=== PATIENT | male | born 1970 | race Caucasian/White ===

== ENCOUNTER 2017-11-10 09:52 | Emergency (ER) | payer OTHER, MEDICAID, SELFPAY ==
[2017-11-10 10:04] VITALS: BP 168/111; PULSE 63; RESP 16; TEMP 36.8; O2SAT 97; BMI 25.7
--- NOTE | 2017-11-10 10:19 | ED_ITS ---
HPI - Male Genitourinary General Chief complaint: Urogenital-Male Stated complaint: SOMETHING WRONG WITH MY KIDNEY Time Seen by Provider: 11/10/17 10:12 Source: patient Mode of arrival: ambulatory Limitations: no limitations History of Present Illness HPI Narrative: Patient is a 46-year-old male who presents with right and left- sided flank pain. He has a history of kidney stones. This pain has been off and on for the last 1 week. Typically he passes a stone within the cement time. Pain has been quite intense at times it does radiate down to his testicle it is more on the right than the left, denies any specific testicular pain. He is not entirely sure what is going on it does not quite feel like kidney stone pain. He has not had fever or chills. He does symptoms have difficulty urinating which happens with kidney stones. he denies any penile discharge he is a monogamous sexual relationship, no history of STDs MD Complaint: other (Flank pain) Onset (ago): week(s) (x1) Related Data Home Medications Medication Instructions Recorded Confirmed [id number]-[id number] 1 tab PO Q4-6H PRN 11/10/17 11/10/17 [Excedrin Migraine] naproxen sodium [Aleve] 220 mg PO Q6-8H PRN 11/10/17 11/10/17 Previous Rx's Medication Instructions Recorded ciprofloxacin HCl 500 mg PO BID #14 tab 11/10/17 Allergies Allergy/AdvReac Type Severity Reaction Status Date / Time hydrocodone [HYDROCODONE] Allergy Mild THINKS HE Verified 11/10/17 10:04 ITCHES oxycodone [OXYCODONE] Allergy Mild ITCHING Verified 11/10/17 10:04 Review of Systems Review of Systems All systems reviewed & are unremarkable except as noted in HPI and below Constitutional Denies chills, Denies fever(s), Denies lethargy and Denies weakness Cardiovascular Denies chest pain, Denies irregular heart rhythm, Denies lightheadedness, Denies palpitations and Denies orthopnea Gastrointestinal Gastrointestinal: Denies abdominal pain, Denies diarrhea, Reports nausea and Denies vomiting Genitourinary Reports system reviewed and no additional complaints, except as docu and Reports as per HPI Musculoskeletal Denies back pain, Denies muscle weakness, Denies numbness and Denies tingling Integumentary/Breasts Denies pruritus, Denies erythema, Denies rash and Denies wounds Neurologic Denies numbness, Denies tingling and Denies weakness Endocrine Denies palpitations [facility] Medical History Kidney stones (Acute) Social History Smoking Status: Current every day smoker Exam Initial Vital Signs Initial Vital Signs: Vital Signs Temperature 98.2 F 11/10/17 10:04 Pulse Rate 63 11/10/17 10:04 Respiratory Rate 16 11/10/17 10:04 Blood Pressure 168/111 H 11/10/17 10:04 Pulse Oximetry 97 11/10/17 10:04 Const General: cooperative and well developed Nutritional Appearance: well nourished Orientation: alert, awake, oriented x3 and not confused Chest Chest: normal inspection of the chest Resp Effort & Inspection: normal respiratory effort, able to speak in complete sentences, no respiratory distress and no use of accessory muscles Auscultation: clear to auscultation bilaterally, no rales, no rhonchi and no wheezes Cardio Rate: regular rate Rhythm: regular rhythm Heart Sounds: no click, no gallops, no murmurs and no rubs Pulses: normal peripheral pulses General: CVA tenderness (Right-sided) Skin General: no rashes or lesions noted, No jaundice and No petechiae Neuro General: alert, oriented x3, gait normal and no focal motor deficits Speech: speech normal Course Orders Ordered: ED Orders 11/10/17 09:55 Urine Microscopic Stat 11/10/17 10:30 CT kidney ureter bladder (KUB) Stat 11/10/17 11:15 Basic Metabolic Panel Stat Complete Blood Count AUTO DIFF Stat Vital Signs - 8 hr 11/10/17 10:04 11/10/17 11:52 Temperature 98.2 F Pulse Rate 63 69 Respiratory Rate 16 15 Blood Pressure 168/111 H Blood Pressure [Right Arm] 156/114 H Pulse Oximetry 97 96 MDM - Male Genitourinary Lab Data Attestation: I reviewed the patient's lab results. Result diagrams: 11/10/17 11:15 11/10/17 11:15 Lab Results 11/10/17 11/10/17 11/10/17 Range/Units 09:55 11:15 11:15 WBC 9.5 (4.5-11.0) X10^3/uL RBC 5.33 (4.5-5.9) X10^6/uL Hgb 16.7 (13.5-17.5) g/dL Hct 47.8 (41-53) % MCV 89.7 (80-100) fL MCH 31.3 (26-34) PG MCHC 34.9 (30-36) % RDW 14.2 (11.6-14.8) % Plt Count 124 L (150-400) X10^3/uL Neut % (Auto) 71.2 (50-75) % Lymph % (Auto) 18.3 L (25-40) % Wolfe % (Auto) 7.3 (3-14) % Eos % (Auto) 2.4 (2-4) % Baso % (Auto) 0.8 (0-2) % Neut # (Auto) 6700 H (3532-2515) /uL Sodium 145 (137-145) mmol/L Potassium 4.9 (3.4-5.1) mmol/L Chloride 107 (98-107) mmol/L Carbon Dioxide 26 (22-32) mmol/L BUN 25 H (9-20) mg/dL Creatinine 1.00 (0.66-1.25) mg/dL Estimated GFR > 60.0 (>60) mL/min BUN/Creatinine Ratio 25.0 H (6-22) Glucose 111 H (70-100) mg/dL Calcium 9.8 (8.4-10.2) mg/dL Urine RBC 1-5/hpf (0-5/HPF) Urine WBC 1-5/hpf (0-5/HPF) Urine Bacteria Few (2-10) H (None) Urine Mucus 1+ H (Negative) Ur Culture Indicated? Cult not indicated Micro UA Comment Not Reportable Imaging Data CT scan - abdomen: Attestation: I personally reviewed and interpreted this imaging study as follows: Radiologist's impression: PROCEDURE: CT KIDNEY URETER BLADDER (KUB) INDICATIONS: right flank pain x 1 week hx of stones TECHNIQUE: Noncontrast 5 mm thick sections acquired from the diaphragms to the symphysis. 5 mm thick coronal and sagittal reformats were then performed. For radiation dose reduction, the following was used: automated exposure control, adjustment of mA and/or kV according to patient size. COMPARISON: [facility], , CT KUB, 02/06/2005, 0:32. [facility], CT , KIDNEY/ URETER/BLADDER, 02/19/2014, 7:53. [facility], CT, KIDNEY/ URETER/BLADDER, , 1:52. FINDINGS: Image quality: Excellent. Lung bases: Lung bases are clear. Heart size is normal. Urinary system: Both kidneys are normal in size. No kidney stones. No hydronephrosis or perinephric fat stranding. A cortical cyst in the lateral upper pole of the left kidney is reidentified and measures 13 x 14 x 13 mm in size, essentially unchanged. It shows internal attenuation of the seventh-eighth units. In the lower pole of the right kidney, previously identified 11 mm cyst has enlarged, now measuring 22 x 25 x 17 mm with internal attenuation of 3. Both ureters appear non-dilated throughout their expected courses. The small calcification in the right hemipelvis, distal right ureter on prior exam is no longer seen. Bladder wall thickness is normal; no calcified bladder stones. Other solid organs: Liver is normal in size. Gallbladder appears normal. Pancreas is normal in contours. Spleen is normal in size. No adrenal nodules. Peritoneum and bowel: Unenhanced bowel loops demonstrate normal wall thickness and caliber. Normal appendix. Mild sigmoid diverticulosis without diverticulitis. No free fluid or air. Nodes and vessels: No retroperitoneal or mesenteric adenopathy by size criteria. Aorta and inferior vena cava are normal in caliber. Abdominal wall: No ventral hernias. Pelvis: No free pelvic fluid. No inguinal hernias or adenopathy. Bones: No suspicious bony lesions. No vertebral body compression fractures. IMPRESSION: 1. No nephrolithiasis or hydronephrosis. 2. Bilateral Bosniak l renal cysts, right lower pole cyst having increased in size from 1 cm to 2.5 cm since prior exams. Dictated by: Sher Barclay M.D. on 11/10/2017 at 10:40 MDM Narrative Medical decision making narrative: No kidney stones, patient had bacteria in urine. Will treat for UTI. Discharge Plan Departure Patient Disposition: Home, Self-Care Clinical Impression: Urinary tract infection Discharge Date/Time: 11/10/17 12:08 Interventions: ED Discharge Assessment Last Done: 11/10/17 12:07 Instructions: DI for Urinary Tract Infection (UTI) Activity Restrictions/Additional Instructions: *You have been diagnosed with UTI *What to do: Increase fluid intake Motrin Tylenol as needed for pain *Continue to take medications as directed Cipro 500 mg twice a day *Follow up with your primary care provider in 2-3 days *Return to ER if you should have increasing pain, persistent fever or any new, worsening or concerning symptoms Prescriptions: New ciprofloxacin HCl 500 mg tablet 500 mg PO BID Qty: 14 RF: 0 No Action naproxen sodium [Aleve] 220 mg Tablet 220 mg PO Q6-8H PRN (Reason: Pain, Moderate) RF: 0 [id number] [Excedrin Migraine] 250-250-65 mg Tablet 1 tab PO Q4-6H PRN (Reason: Headache) RF: 0 Referrals: [facility] [Outside] [facility] [Outside]
[2017-11-10 10:26] LABS: Bacteria Urine Few (2-10); Mucus Urine 1+ (Negative); RBC Urine 1-5/HPF (0-5/HPF); WBC Urine 1-5/HPF (0-5/HPF)
[2017-11-10 10:27] LABS: Culture Indicated Urine Cult Not Indicated
--- NOTE | 2017-11-10 10:30 | DI.CT.S_ITS ---
PROCEDURE: CT KIDNEY URETER BLADDER (KUB) INDICATIONS: right flank pain x 1 week hx of stones TECHNIQUE: Noncontrast 5 mm thick sections acquired from the diaphragms to the symphysis. 5 mm thick coronal and sagittal reformats were then performed. For radiation dose reduction, the following was used: automated exposure control, adjustment of mA and/or kV according to patient size. COMPARISON: [facility], RG, CT KUB, 02/06/2005, 0:32. [facility], CT, KIDNEY/ URETER/BLADDER, 02/19/2014, 7:53. [facility], CT, KIDNEY/ URETER/BLADDER, 08/15/2014, 1:52. FINDINGS: Image quality: Excellent. Lung bases: Lung bases are clear. Heart size is normal. Urinary system: Both kidneys are normal in size. No kidney stones. No hydronephrosis or perinephric fat stranding. A cortical cyst in the lateral upper pole of the left kidney is reidentified and measures 13 x 14 x 13 mm in size, essentially unchanged. It shows internal attenuation of the seventh-eighth units. In the lower pole of the right kidney, previously identified 11 mm cyst has enlarged, now measuring 22 x 25 x 17 mm with internal attenuation of 3. Both ureters appear non-dilated throughout their expected courses. The small calcification in the right hemipelvis, distal right ureter on prior exam is no longer seen. Bladder wall thickness is normal; no calcified bladder stones. Other solid organs: Liver is normal in size. Gallbladder appears normal. Pancreas is normal in contours. Spleen is normal in size. No adrenal nodules. Peritoneum and bowel: Unenhanced bowel loops demonstrate normal wall thickness and caliber. Normal appendix. Mild sigmoid diverticulosis without diverticulitis. No free fluid or air. Nodes and vessels: No retroperitoneal or mesenteric adenopathy by size criteria. Aorta and inferior vena cava are normal in caliber. Abdominal wall: No ventral hernias. Pelvis: No free pelvic fluid. No inguinal hernias or adenopathy. Bones: No suspicious bony lesions. No vertebral body compression fractures. IMPRESSION: 1. No nephrolithiasis or hydronephrosis. 2. Bilateral Bosniak l renal cysts, right lower pole cyst having increased in size from 1 cm to 2.5 cm since prior exams. Dictated by: Sher Barclay M.D. on 11/10/2017 at 10:40 Approved by: Sher Barclay M.D. on 11/10/2017 at 10:55
[2017-11-10 11:22] LABS: Add Manual Diff / Slide Review NO; Basophils Percent Auto 0.8 % (0-2); Eosinophils Percent Auto 2.4 % (2-4); Hematocrit 47.8 % (41-53); Hemoglobin 16.7 g/dL (13.5-17.5); Lymphocytes Percent Auto 18.3 % (25-40); Mean Corpuscular HGB Conc 34.9 % (30-36); Mean Corpuscular Hemoglobin 31.3 PG (26-34); Mean Corpuscular Volume 89.7 fL (80-100); Monocytes Percent Auto 7.3 % (3-14); Neutrophils Absolute Auto 6700 /uL (3000-5900); Neutrophils Percent Auto 71.2 % (50-75); Platelet Count 124 X10^3/uL (150-400); Red Blood Cell Count 5.33 X10^6/uL (4.5-5.9); Red Cell Distribution Width 14.2 % (11.6-14.8); White Blood Cell Count 9.5 X10^3/uL (4.5-11.0)
[2017-11-10 11:42] LABS: Blood Urea Nitrogen 25 mg/dL (9-20); Calcium 9.8 mg/dL (8.4-10.2); Carbon Dioxide 26 mmol/L (22-32); Chloride 107 mmol/L (98-107); Estimated Glomerular Filt Rate > 60.0 mL/min (>60); Glucose 111 mg/dL (70-100); HEMOLYSIS < 15 (0-50); Potassium 4.9 mmol/L (3.4-5.1); Sodium 145 mmol/L (137-145)
[2017-11-10 11:52] VITALS: BP 156/114; PULSE 69; RESP 15; O2SAT 96
== END 2017-11-10 12:08 | disposition home or self-care (01) ==
PROVIDERS: Emergency Provider Emergency Medicine
DX: N39.0 Urinary tract infection, site not specified (principal)
CPT/HCPCS: 36415; 74176; 80048; 81003; 81015; 85025; 99282; 99284

== ENCOUNTER 2018-11-30 15:51 | Emergency (ER) | payer OTHER, SELFPAY ==
--- NOTE | 2018-11-30 15:58 | DI.RAD.S_ITS ---
PROCEDURE: XR HAND RT MIN 3V INDICATIONS: R hand pain, swelling over 5th MCP TECHNIQUE: 3 views of the hand(s) acquired. COMPARISON: None. FINDINGS: Bones: There is a comminuted fracture of the left metacarpal head and neck without displacement. There is probable old fracture of the fifth metacarpal base. Carpal bones are normally aligned. No suspicious bony lesions. Soft tissues: Small radiodense soft tissue foreign bodies are noted. There is a soft tissue swelling over the distal fifth metacarpal. IMPRESSION: 1. Nondisplaced acute fifth metacarpal head and neck fracture. 2. Probable nondisplaced old fifth metacarpal base fracture. 3. Soft tissue swelling and small radiodense foreign bodies. Dictated by: Mery Nino M.D. on 11/30/2018 at 16:14 Approved by: Mery Nino M.D. on 11/30/2018 at 16:18
--- NOTE | 2018-11-30 16:02 | ED_ITS ---
HPI - Extremity Injury (Upper) General Chief Complaint: Extremity Injury, Upper Stated Complaint: RT HAND INJURY Time Seen by Provider: 11/30/18 15:53 Source: patient Mode of arrival: ambulatory Limitations: no limitations History of Present Illness HPI narrative: 48-year-old male daily smoker presents with a chief complaint of an injury to his right hand after punching and abdomen object in anger. His tetanus is current. He has pain and decreased range of motion as well as a laceration over his 5th finger. He denies other injury and is otherwise well and free of complaint MD complaint: injury to: right Onset (ago): minute(s) Other Extremity Injury: Right: hand Handedness: right Place: home Severity: moderate Relieving factors: cold therapy and immobilization Exacerbating factors: movement of extremity Context: direct blow Associated symptoms: denies other symptoms Treatments prior to arrival: cold therapy and bandage Related Data Previous Rx's Medication Instructions Recorded hydrocodone-acetaminophen 1 tab PO Q4-6H PRN #20 tab 11/30/18 Allergies Allergy/AdvReac Type Severity Reaction Status Date / Time hydrocodone [HYDROCODONE] Allergy Mild THINKS HE Verified 11/30/18 16:04 ITCHES oxycodone [OXYCODONE] Allergy Mild ITCHING Verified 11/30/18 16:04 Review of Systems Constitutional Denies chills, Denies fever(s), Denies lethargy and Denies weakness Eyes Denies change in vision, Denies eye discharge, Denies irritation and Denies loss of vision ENT Ears, Nose, Mouth, and Throat: Denies change in voice, Denies neck pain and Denies sore throat Cardiovascular Denies chest pain, Denies irregular heart rhythm, Denies lightheadedness, Denies palpitations, Denies dyspnea, Denies dyspnea on exertion and Denies orthopnea Respiratory Denies cough, Denies dyspnea, Denies dyspnea on exertion and Denies wheezing Gastrointestinal Gastrointestinal: Denies abdominal pain, Denies change in bowel habits, Denies diarrhea, Denies nausea and Denies vomiting Genitourinary Denies hematuria, Denies flank pain, Denies urinary incontinence and Denies urinary urgency Musculoskeletal Reports joint swelling, Reports limited range of motion and Denies neck pain Integumentary/Breasts Denies pruritus, Denies erythema, Denies rash and Reports wounds Neurologic Denies confusion, Denies loss of vision and Denies weakness Psychiatric Denies anxiety, Denies confusion, Denies depression, Denies homicidal ideation and Denies suicidal ideation Endocrine Denies palpitations Hematologic/Lymphatic Denies easy bruising Allergic/Immunologic Denies wheezing [facility] [place] Medical History Kidney stones (Acute) Social History Smoking Status: Current every day smoker Social History Smoking Status: Current every day smoker Exam Narrative Exam Narrative: GEN: 48-year-old male, A&O x3, GCS 15, pleasant, but obviously in pain EYES: Pupils are equal, round, and reactive to light and accommodation. Extraoccular muscles are intact bilaterally. There is no subconjunctival hemorrhage or exudate. CHEST: Lungs are clear to auscultation bilaterally and free of wheezes, rales, or rhonchi. Heart rate is regular rhythm, there are no murmurs, clicks, rubs, or gallops. There is no chest wall tenderness. ABD: Abdomen is soft and nontender. There is no guarding or rebound. Bowel sounds are normal in all 4 quadrants. There is no mass or organomegaly. EXT: Decreased range of motion secondary to pain of the right hand, particularly at the 5th MCP. There is swelling and possible deformity suggesting fracture. Additionally there is a 1 cm laceration on the dorsum of the 5th finger with dried blood but no active bleeding. Cap refills less than 2 seconds and sensation is intact SKIN: Warm, pink, and dry. No erythema or rash Initial Vital Signs Initial Vital Signs: Vital Signs Temperature 97.7 F 11/30/18 16:04 Pulse Rate 81 11/30/18 16:04 Respiratory Rate 16 11/30/18 16:04 Blood Pressure 157/119 H 11/30/18 16:04 Pulse Oximetry 96 11/30/18 16:04 Procedures Laceration Repair Laceration 1: Site: hand Side (If applicable): right Size (cm): 1 Description: linear Depth: simple, single layer Local Anesthetic: lidocaine 1% and with bicarb Amount of anesthesia used (mL): 2 Pre-repair: wound explored and deep structures intact Skin layer closed with: nylon Size (cm): 5-0 Number of sutures: 2 Technique: simple, interrupted Orthopedic Splinting/Casting Injury #1: Side: right Upper Extremity Injury Location: hand Upper Extremity Immobilizer: ulnar gutter Post splinting neuro exam: intact Post splinting vascular exam: intact Placed by: Nursing Course Orders Ordered: ED Orders 11/30/18 15:58 XR hand RT min 3V Stat Vital Signs - 8 hr 11/30/18 16:04 11/30/18 16:50 Temperature 97.7 F Pulse Rate 81 66 Respiratory Rate 16 18 Blood Pressure 157/119 H Blood Pressure [Left Arm] 147/109 H Pulse Oximetry 96 97 MDM - Extremity Injury (Upper) Imaging Data hand xray: Radiologist's impression: [address] [address] XRay Report Signed Patient: Laila Plummer#: [id number] : 1970Acct:[id number] Age/Sex: 48 / MDate of Service: 11/30/18 Loc: ED Accession Number: [id number] Procedure: XR hand RT min 3V Ordering Provider: Dhiraj Roblero D.O. PROCEDURE: XR HAND RT MIN 3V INDICATIONS: R hand pain, swelling over 5th MCP TECHNIQUE: 3 views of the hand(s) acquired. COMPARISON: None. FINDINGS: Bones: There is a comminuted fracture of the left metacarpal head and neck without displacement. There is probable old fracture of the fifth metacarpal base. Carpal bones are normally aligned. No suspicious bony lesions. Soft tissues: Small radiodense soft tissue foreign bodies are noted. There is a soft tissue swelling over the distal fifth metacarpal. IMPRESSION: 1. Nondisplaced acute fifth metacarpal head and neck fracture. 2. Probable nondisplaced old fifth metacarpal base fracture. 3. Soft tissue swelling and small radiodense foreign bodies. Dictated by: Mery Nino M.D. on 11/30/2018 at 16:14 Approved by: Mery Nino M.D. on 11/30/2018 at 16:18 Discharge Plan Departure Patient Disposition: Home Clinical Impression: Fracture of fifth metacarpal bone of right hand Qualifiers: Encounter type: initial encounter Fracture type: closed Metacarpal location: shaft Fracture alignment: displaced Qualified Code(s): S62.326A - Displaced fracture of shaft of fifth metacarpal bone, right hand, initial encounter for closed fracture Laceration of finger of right hand Qualifiers: Encounter type: initial encounter Finger: little finger Damage to nail status: without damage Foreign body presence: without foreign body Qualified Code(s): S61.216A - Laceration without foreign body of right little finger without damage to nail, initial encounter Discharge Date/Time: 11/30/18 16:54 Interventions: ED Discharge Assessment Last Done: 11/30/18 16:53 Instructions: DI for a Hand Fracture Activity Restrictions/Additional Instructions: Please keep the wound clean and dry to the best of your ability. Please monitor for signs of infection such as redness to the skin or increasing pain. Have the sutures removed by your doctor in about 7 days. If you are unable to get into your doctor, we would be happy to remove the sutures in that same timeframe. *You have been diagnosed with [right hand boxer's fracture, possible 5th metacarpal base fracture with superficial laceration] *What to do: *Take medications as directed *Follow up with [facility] in 2-3 days, call for an appointment. Let them know you were seen in the Emergency Department and that we ask that you be seen in follow up *Return to ER if you should have any new, worsening or concerning symptoms, such as [worsening pain, numbness, tingling or other bothersome symptoms] Prescriptions: New hydrocodone-acetaminophen 5-325 mg tablet 1 tab PO Q4-6H PRN (Reason: pain) Qty: 20 RF: 0 Referrals: Richie Schroeder MD [Physician] -
[2018-11-30 16:04] VITALS: BP 157/119; PULSE 81; RESP 16; TEMP 36.5; O2SAT 96; BMI 26.9
[2018-11-30 16:50] VITALS: BP 147/109; PULSE 66; RESP 18; O2SAT 97
== END 2018-11-30 16:54 | disposition home or self-care (01) ==
PROVIDERS: Emergency Provider Emergency Medicine
DX: S62.326A Displaced fracture of shaft of fifth metacarpal bone, right hand, initial encounter for closed fracture (principal); S61.216A Laceration without foreign body of right little finger without damage to nail, initial encounter; W22.8XXA Striking against or struck by other objects, initial encounter
CPT/HCPCS: 12001; 29125; 73130; 99283

== ENCOUNTER 2018-12-13 14:48 | Emergency (ER) | payer OTHER, SELFPAY ==
[2018-12-13 14:52] VITALS: BP 160/111; PULSE 55; RESP 18; TEMP 36.8; O2SAT 97; BMI 26.9
--- NOTE | 2018-12-13 17:05 | PC.NURSE ---
Skin well approximated with no redness or swelling
[2018-12-13 17:06] VITALS: BP 154/88; PULSE 85; RESP 16; TEMP 36.3; O2SAT 98
--- NOTE | 2018-12-13 20:20 | ED_ITS ---
HPI - Wound/Laceration <MARK Villar - Last Filed: 12/13/18 20:20> General Chief Complaint: Wound/Laceration Stated Complaint: NEEDS STICHES TAKEN OUT Time Seen by Provider: 12/13/18 16:45 Source: patient Mode of arrival: ambulatory Limitations: no limitations History of Present Illness HPI narrative: The patient is a 48-year-old male current smoker who presents for chief complaint of needing his sutures out. He was seen for a fracture of his 5th metacarpal bone on his right hand on 11/30 and was placed with 2 sutures. He followed up with [facility], but they states at he was not contacted again for further follow-up. He states he does not want to call them as it is their adopted call him. He denies any fevers nausea vomiting diarrhea. Denies any drainage from the site. Related Data Previous Rx's Medication Instructions Recorded hydrocodone-acetaminophen 1 tab PO Q4-6H PRN #20 tab 11/30/18 Allergies Allergy/AdvReac Type Severity Reaction Status Date / Time No Known Drug Allergies Allergy Verified 12/13/18 15:27 Review of Systems <MARK Villar - Last Filed: 12/13/18 20:20> Review of Systems GENERAL: Denies chills, fatigue, malaise, fever, sweats. HEENT: Denies sinus pain, ear pain, sore throat, difficulty swallowing, dizziness. RESPIRATORY: Denies dyspnea, cough, wheezing, hemoptysis, sputum. CARDIOVASCULAR: Denies chest pain, palpitations, orthopnea, edema, GASTROINTESTINAL: Denies nausea, vomiting, abdominal pain, diarrhea, constipation, melena. : Denies dysuria, frequency, incontinence, hematuria, urinary retention. MUSCULOSKELETAL: denies weakness, joint pain, or bony pain SKIN: See HPI NEUROLOGIC: Denies weakness, headache, numbness, change in speech, confusion, seizures, incoordination. PSYCHIATRIC: No concerning psychosocial issues. 12 point review of systems is negative except for those stated above PFSH <MARK Villar - Last Filed: 12/13/18 20:20> Medical History Kidney stones (Acute) Social History Smoking Status: Current every day smoker Exam <MARK Villar - Last Filed: 12/13/18 20:20> Narrative Exam Narrative: GENERAL: This is a well-nourished, well-developed patient, in no acute distress. HEAD: Atraumatic. Normocephalic. No temporal or scalp tenderness. EYES: Pupils equal round and reactive. Extraocular motions intact. No scleral icterus. No injection or drainage. ENT: Nose without bleeding, purulent drainage or septal hematoma. Throat without erythema, tonsillar hypertrophy or exudate. Uvula midline. Airway patent. NECK: Trachea midline. No JVD or lymphadenopathy. Supple, nontender, no meningeal signs. CARDIOVASCULAR: Regular rate and rhythm RESPIRATORY: No cough. No increased respiratory effort. No accessory muscle use. EXTREMITIES: No clubbing, cyanosis, or edema. No joint tenderness, effusion, or edema noted. BACK: Nontender without deformity or crepitance. No flank tenderness. NEURO: AOx3. SKIN: 2 sutures over dorsum of the 5th finger. Wound is well approximated. No obvious drainage or erythema. Initial Vital Signs Initial Vital Signs: Vital Signs Temperature 98.2 F 12/13/18 14:52 Pulse Rate 55 L 12/13/18 14:52 Respiratory Rate 18 12/13/18 14:52 Blood Pressure 160/111 H 12/13/18 14:52 Pulse Oximetry 97 12/13/18 14:52 <Aminata Fleming MD - Last Filed: 12/13/18 20:21> Initial Vital Signs Initial Vital Signs: Vital Signs Temperature 98.2 F 12/13/18 14:52 Pulse Rate 55 L 12/13/18 14:52 Respiratory Rate 18 12/13/18 14:52 Blood Pressure 160/111 H 12/13/18 14:52 Pulse Oximetry 97 12/13/18 14:52 Course <MARK Villar - Last Filed: 12/13/18 20:20> Vital Signs - 8 hr 12/13/18 14:52 12/13/18 17:06 Temperature 98.2 F 97.4 F L Pulse Rate 55 L 85 Respiratory Rate 18 16 Blood Pressure 160/111 H 154/88 H Pulse Oximetry 97 98 <Aminata Fleming MD - Last Filed: 12/13/18 20:21> Vital Signs - 8 hr 12/13/18 14:52 12/13/18 17:06 Temperature 98.2 F 97.4 F L Pulse Rate 55 L 85 Respiratory Rate 18 16 Blood Pressure 160/111 H 154/88 H Pulse Oximetry 97 98 MDM - Wound/Laceration <MONSE VillarP- - Last Filed: 12/13/18 20:20> MDM Narrative Medical decision making narrative: The patient is a 48-year-old male who presents for suture removal. His incision looks good and his sutures removed by nursing staff. I discussed at length follow up with primary care provider as well as [facility]. Encouraged the patient to call [facility] and try to encourage responsibility with his own care. The patient was agitated regarding the wait to have sutures out, as well as his weight for discharge paperwork. He states he will not call [facility], so I offered to refer him to the health sustainability project coordinator. Discussed coming back to the ER for any acute concerns. Discharge Plan Departure Patient Disposition: Home Clinical Impression: Encounter for removal of sutures Discharge Date/Time: 12/13/18 17:27 Interventions: ED Discharge Assessment Last Done: 12/13/18 17:06 Instructions: DI for Suture Removal Activity Restrictions/Additional Instructions: Your laceration looks like it is healing well. Please continue to monitor for signs and symptoms of infection. Please follow up with primary care provider as well as the orthopedist as we discussed. I strongly encourage you to contact [facility] for further follow-up. I have given the contact information for [facility] technology resource teacher. They can help affiliate you with a new provider if needed. Prescriptions: No Action hydrocodone-acetaminophen 5-325 mg tablet 1 tab PO Q4-6H PRN (Reason: pain) Qty: 20 RF: 0 Referrals: [facility] [Outside]
== END 2018-12-13 17:27 | disposition home or self-care (01) ==
PROVIDERS: Emergency Provider Nurse Practitioner Family
DX: Z48.02 Encounter for removal of sutures (principal)
CPT/HCPCS: 99281; 99283

== ENCOUNTER → 2018-12-27 09:58 | Outpatient (CLI) | payer OTHER, SELFPAY ==
--- NOTE | 2018-12-27 | DI.CT.S_ITS ---
PROCEDURE: CT UE LT WO CON INDICATIONS: fracture of fifth metacarpal bone, right hand TECHNIQUE: Noncontrast 1 mm axial sections acquired through the carpal bones, with coronal and sagittal reformats. COMPARISON: [facility], CR, XR HAND RT MIN 3V, 11/30/2018, 15:58. FINDINGS: Image quality: Excellent. Bones: Left fifth metacarpal head and neck fracture, (4/53), with minimal displacement. The articular surface of the fifth MCP joint is smooth. No fracture of the base of the fifth metacarpal. There is a nutrient foramen in the proximal shaft as well as a small osteophyte. No additional fracture. Mild degenerative change in the wrist. Small sclerotic foci in the fifth proximal phalanx and distal ulna. Soft tissues: Mild soft tissue swelling associated with the fifth metacarpal fracture. IMPRESSION: Left fifth metacarpal head and neck fracture with minimal displacement. No additional fracture. Dictated by: Tony Issa M.D. on 12/27/2018 at 10:57 Approved by: Tony Issa M.D. on 12/27/2018 at 11:19
== END ==
PROVIDERS: Visit Provider Physician Assistant Surgical
DX: S62.337A Displaced fracture of neck of fifth metacarpal bone, left hand, initial encounter for closed fracture (principal)
CPT/HCPCS: 73200

== ENCOUNTER → 2019-09-22 17:06 | Outpatient (CLI) | payer OTHER, SELFPAY ==
[2019-09-24 05:01] LABS: COVID19 Sendout Not Detected (Not Detected)
== END ==
PROVIDERS: Visit Provider Registered Nurse
DX: R05 Cough (principal)
CPT/HCPCS: 87635

== ENCOUNTER 2021-12-25 22:50 | Emergency (ER) | payer OTHER, SELFPAY ==
[2021-12-25 23:02] VITALS: BP 164/106; PULSE 81; RESP 20; TEMP 36.4; O2SAT 98; BMI 28.8
[2021-12-26 00:03] LABS: Bacteria Urine None Seen; Calcium Oxalate Crystals Urine Occasional; Hyaline Casts Urine 0-1/LPF; Mucus Urine 2+ (Negative); RBC Urine >100/HPF (0-5/HPF); WBC Urine 0-1/HPF (0-5/HPF)
--- NOTE | 2021-12-26 00:03 | DI.CT.S_ITS ---
PROCEDURE: CT KIDNEY URETER BLADDER (KUB) INDICATIONS: flank pain, hx of kidney stones TECHNIQUE: Axial sections were acquired from the lung bases to the pubic symphysis. Coronal and sagittal reformats were performed. For radiation dose reduction, the following was used: automated exposure control, adjustment of mA and/or kV according to patient size. COMPARISON: [facility], CT, CT KIDNEY URETER BLADDER (KUB), 11/10/2017, 10:27. FINDINGS: Image quality: Excellent. Lung bases: There is minimal atelectasis and scarring. Heart: Heart is normal in size. URINARY: Right Kidney and Ureter: There is a small urinary stone measuring up to 0.4 cm at the ureteropelvic junction with associated mild right hydronephrosis and perinephric stranding. A cyst is redemonstrated in the inferior pole of the right kidney. Left Kidney and Ureter: No stones or hydronephrosis. There is an exophytic left renal cyst. No hydroureter. Bladder: Normal wall thickness. No stones. ABDOMEN: Liver: Noncontrast evaluation of the liver demonstrates no discrete mass. Gallbladder: Within normal limits without calcified gallstones. Biliary ducts: No biliary ductal dilatation. Pancreas: Unremarkable. Spleen: Normal in size. Adrenal Glands: No adrenal nodules. Stomach and Bowel: Stomach, small bowel loops, and colon are normal in caliber and wall thickness. The appendix is normal in appearance. There is colonic diverticulosis without acute diverticulitis. Peritoneum: No abnormal intraperitoneal fluid. No free air. Ventral Wall: No hernia. Abdominal Nodes: No retroperitoneal or mesenteric adenopathy by size criteria. Vessels: Aorta and inferior vena cava are normal in size. PELVIS: Pelvic Organs: Unremarkable. Pelvic Nodes: No enlarged lymph nodes. Miscellaneous: No inguinal hernias identified. Bones: Visualized osseous structures demonstrate no suspicious focal lesions. IMPRESSION: 1. Obstructing urinary stone at the right UPJ with mild hydronephrosis. Dictated by: Manish Gamez M.D. on 12/26/2021 at 1:23 Approved by: Manish Gamez M.D. on 12/26/2021 at 1:26
[2021-12-26] MEDS: KETOROLAC 30 MG/ML VIAL 15 MG IV (00:12)
[2021-12-26] MEDS: ONDANSETRON 4 MG/2 ML INJ IV (00:12)
[2021-12-26 00:20] LABS: Alanine Aminotransferase 24 IU/L (<50); Albumin 4.5 g/dL (3.5-5.0); Albumin Globulin Ratio 1.2 (1.0-2.8); Alkaline Phosphatase 81 U/L (38-126); Aspartate Aminotransferase 30 IU/L (17-59); BUN Creatinine Ratio 19.8 (6-22); Bilirubin Total 0.7 mg/dL (0.2-1.3); Blood Urea Nitrogen 21 mg/dL (9-20); Calcium 9.3 mg/dL (8.4-10.2); Carbon Dioxide 21 mmol/L (22-32); Chloride 107 mmol/L (98-107); Estimated Glomerular Filt Rate > 60 mL/min (>60); Globulin 3.7 g/dL (1.7-4.1); Glucose 109 mg/dL (70-100); HEMOLYSIS < 15 (0-50); Lipase 81 U/L (23-300); Potassium 3.7 mmol/L (3.4-5.1); Sodium 140 mmol/L (137-145); Total Protein 8.2 g/dL (6.3-8.2)
[2021-12-26 00:45] LABS: Add Manual Diff / Slide Review NO; Basophils Absolute Auto 100 /uL (0-100); Basophils Percent Auto 0.8 % (0-2); Eosinophils Absolute Auto 200 /uL (0-450); Eosinophils Percent Auto 2.3 % (2-4); Hematocrit 50.3 % (41-53); Lymphocytes Absolute Auto 1700 /uL (1100-4500); Lymphocytes Percent Auto 18.8 % (25-40); Mean Corpuscular HGB Conc 33.8 % (30-36); Mean Corpuscular Hemoglobin 28.8 PG (26-34); Mean Corpuscular Volume 85.4 fL (80-100); Monocytes Absolute Auto 800 /uL (0-900); Monocytes Percent Auto 9.3 % (3-14); Neutrophils Absolute Auto 6100 /uL (1500-7000); Neutrophils Percent Auto 68.8 % (50-75); Platelet Count 174 X10^3/uL (150-400); Red Blood Cell Count 5.89 X10^6/uL (4.5-5.9); Red Cell Distribution Width 14.6 % (11.6-14.8); White Blood Cell Count 8.9 X10^3/uL (4.5-11.0)
--- NOTE | 2021-12-26 00:58 | ED.MALEGU ---
HPI - Male Genitourinary General Chief complaint: Urogenital-Male Stated complaint: kidney pain Time Seen by Provider: 12/26/21 00:00 Source: patient Mode of arrival: Ambulatory History of Present Illness HPI Narrative: This is a 51-year-old male comes emergency department with complaint of kidney stone. Patient states sudden onset right flank pain sort of gradual and then increasing this morning sort of resolved and then came back on quite significantly this evening about 9:00 p.m. became intractable. Patient denies fevers or chills. He is had some nausea and vomiting. He has not any hematuria, dysuria, discharge or frequency. No GI symptoms no diarrhea constipation. Feels very similar to his prior kidney stones. He is had lithotripsy with stent placement in the past. States this was remotely. He has not had any other surgeries. No known drug allergies. He takes medication for GERD but no other daily medications. No smoking but he vapes, no alcohol, no illicit. He did see Urology locally but does not recall who. Related Data Previous Rx's Medication Instructions Recorded oxycodone 5 mg tablet 5 mg PO QID PRN pain #14 tabs 12/26/21 tamsulosin 0.4 mg capsule (Flomax) 0.4 mg PO DAILY #7 caps 12/26/21 Allergies Allergy/AdvReac Type Severity Reaction Status Date / Time No Known Drug Allergies Allergy Verified 09/22/19 16:44 Review of Systems Review of Systems ROS Unobtainable: All systems reviewed & are unremarkable except as noted in HPI and below Patient History Medical History (Updated 12/26/21 @ 01:37 by Dena Cannon DO) Kidney stones Social History Smoking Status: Former smoker Smoking Status: Former smoker alcohol intake frequency: a few times a week Substance Use Type: does not use Exam Narrative Exam Narrative: GENERAL: Alert and oriented x three, moderate distress HEENT: Head normocephalic, atraumatic, EOMI, pupils reactive, face symmetric, moist mucous membranes NECK: Supple, full range of motion CARDIOVASCULAR: Regular rate and rhythm without murmurs, rubs or gallops. RESPIRATORY: Breath sounds equal bilaterally, no wheezes rales or rhonchi. ABDOMEN: Soft, nontender. Normoactive bowel sounds all 4 quadrants. No guarding or rebound, rigidity, no mass : No CVA tenderness EXTREMITIES: Normal range of motion, no clubbing or edema. Neurovascularly intact NEUROLOGICAL: Cranial nerves II through XII grossly intact. Moving all extremities SKIN: Warm, dry, no petechiae, no rashes or lesions. Initial Vital Signs Initial Vital Signs: Vital Signs Temperature 97.6 F 12/25/21 23:02 Pulse Rate 81 12/25/21 23:02 Respiratory Rate 20 12/25/21 23:02 Blood Pressure 164/106 H 12/25/21 23:02 Pulse Oximetry 98 12/25/21 23:02 Oxygen Delivery Method 12/25/21 23:02 Course Orders Ordered: Discontinued Medications Hydromorphone HCl (Hydromorphone 0.5 Mg Inj) 0.5 mg IV NOW ONE Stop: 12/26/21 01:07 Last Admin: 12/26/21 01:10 Dose: 0.5 mg Documented By: NR Ketorolac Tromethamine (Ketorolac 30 Mg/Ml Vial) 15 mg IV NOW ONE Stop: 12/26/21 00:01 Last Admin: 12/26/21 00:12 Dose: 15 mg Documented By: NR Ondansetron HCl (Ondansetron 4 Mg/2 Ml Inj) 4 mg IV NOW ONE Stop: 12/26/21 00:01 Last Admin: 12/26/21 00:12 Dose: 4 mg Documented By: ALEXANDRA Oxycodone/Acetaminophen (Oxycodone/Apap 5/325 Prepack) 1 bottle MISC SEEINSTR ONE Stop: 12/26/21 02:08 Last Admin: 12/26/21 02:13 Dose: 1 bottle Documented By: NR Tamsulosin HCl (Tamsulosin 0.4 Mg Capsule) 0.4 mg PO NOW ONE Stop: 12/26/21 01:38 Last Admin: 12/26/21 02:02 Dose: 0.4 mg Documented By: HNG Reevaluation(s) Reevaluation #1: patient pain improved after narcotics. resting comfortably. Time: 01:54 Vital Signs Vital signs: Vital Signs - 8 hr 12/25/21 23:02 Temperature 97.6 F Pulse Rate 81 Respiratory Rate 20 Blood Pressure 164/106 H Pulse Oximetry 98 Oxygen Delivery Method Room Air MDM - Male Genitourinary Lab Data Result diagrams: 12/25/21 23:40 12/25/21 23:40 Labs: Lab Results 12/25/21 12/25/21 12/25/21 Range/Units 23:25 23:40 23:40 WBC 8.9 (4.5-11.0) X10^3/uL RBC 5.89 (4.5-5.9) X10^6/uL Hgb 17.0 (13.5-17.5) g/dL Hct 50.3 (41-53) % MCV 85.4 (80-100) fL MCH 28.8 (26-34) PG MCHC 33.8 (30-36) % RDW 14.6 (11.6-14.8) % Plt Count 174 (150-400) X10^3/uL Neut % (Auto) 68.8 (50-75) % Lymph % (Auto) 18.8 L (25-40) % Bradley % (Auto) 9.3 (3-14) % Eos % (Auto) 2.3 (2-4) % Baso % (Auto) 0.8 (0-2) % Neut # (Auto) 6100 (4968-0372) /uL Lymph # (Auto) 1700 (6600-7143) /uL Bradley # (Auto) 800 (0-900) /uL Eos # (Auto) 200 (0-450) /uL Baso # (Auto) 100 (0-100) /uL Sodium 140 (137-145) mmol/L Potassium 3.7 (3.4-5.1) mmol/L Chloride 107 (98-107) mmol/L Carbon Dioxide 21 L (22-32) mmol/L BUN 21 H (9-20) mg/dL Creatinine 1.06 (0.66-1.25) mg/dL Estimated GFR > 60 (>60) mL/min BUN/Creatinine Ratio 19.8 (6-22) Glucose 109 H (70-100) mg/dL Calcium 9.3 (8.4-10.2) mg/dL Total Bilirubin 0.7 (0.2-1.3) mg/dL AST 30 (17-59) IU/L ALT 24 (<50) IU/L Alkaline Phosphatase 81 (38-126) U/L Total Protein 8.2 (6.3-8.2) g/dL Albumin 4.5 (3.5-5.0) g/dL Globulin 3.7 (1.7-4.1) g/dL Albumin/Globulin Ratio 1.2 (1.0-2.8) Lipase 81 (23-300) U/L Urine RBC >100/hpf H (0-5/HPF) Urine WBC 0-1/hpf (0-5/HPF) Calcium Oxalate Crystal Occasional H Urine Bacteria None seen (None) Hyaline Casts 0-1/lpf (None) Urine Mucus 2+ H (Negative) Ur Culture Indicated? Culture not indicate Micro UA Comment * Urine Dip Bedside Urine Glucose Negative Bedside Urine Bilirubin - Negative Bedside Urine Ketone - Negative Urine Specific Jean 1.030 Bedside Urine Occult Blood +++ Bedside Urine pH 5.5 Bedside Urine Protein + 30 Bedside Urine Urobilinogen - Negative Bedside Urine Nitrite - Negative Bedside Urine Leukocytes - Negative Esterase Imaging Data CT scan - abdomen/pelvis: Radiologist's Impression: [address] [id number] [address] Scan Report Signed Patient: Tru Plummer MR#: [id number] : 1970 Acct:[id number] Age/Sex: 51 / M Date of Service: 12/26/21 Loc: ED Accession Number: [id number] ?? Procedure: CT kidney ureter bladder (KUB) Ordering Provider: Dena Cannon D.O. PROCEDURE:? CT KIDNEY URETER BLADDER (KUB) ? INDICATIONS:? flank pain, hx of kidney stones ? TECHNIQUE:? Axial sections were acquired from the lung bases to the pubic symphysis.? Coronal and sagittal reformats were performed.? For radiation dose reduction, the following was used: ?automated exposure control, adjustment of mA and/or kV according to patient size.? ? COMPARISON:? [facility], CT, CT KIDNEY URETER BLADDER (KUB), 11/10/2017, 10:27. ? FINDINGS:? Image quality:? Excellent.? ? Lung bases:? There is minimal atelectasis and scarring.? ? Heart:? Heart is normal in size. ? URINARY: Right Kidney and Ureter: ? There is a small urinary stone measuring up to 0.4 cm at the ureteropelvic junction with associated mild right hydronephrosis and perinephric stranding.? A cyst is redemonstrated in the inferior pole of the right kidney. ? Left Kidney and Ureter: ? No stones or hydronephrosis.? There is an exophytic left renal cyst.? No hydroureter. ? Bladder:? Normal wall thickness. No stones. ? ? ? ABDOMEN: Liver:? Noncontrast evaluation of the liver demonstrates no discrete? mass. Gallbladder:? Within normal limits without calcified gallstones.? ? Biliary ducts:? No biliary ductal dilatation.? ? Pancreas:? Unremarkable.? ? Spleen:? Normal in size.? ? Adrenal Glands:? No adrenal nodules.? ? ? Stomach and Bowel:? Stomach, small bowel loops, and colon are normal in caliber and wall thickness.? The appendix is normal in appearance.? There is colonic diverticulosis without acute diverticulitis.? Peritoneum:? No abnormal intraperitoneal fluid.? No free air.? ? Ventral Wall: ? No hernia.? Abdominal Nodes:? No retroperitoneal or mesenteric adenopathy by size criteria.? Vessels:? Aorta and inferior vena cava are normal in size.? ? PELVIS: Pelvic Organs:? Unremarkable.? ? Pelvic Nodes: No enlarged lymph nodes.? Miscellaneous: No inguinal hernias identified. ? ? ? Bones:? Visualized osseous structures demonstrate no suspicious focal lesions. IMPRESSION:? ? 1. Obstructing urinary stone at the right UPJ with mild hydronephrosis.? ? ? Dictated by: Manish Gamez M.D. on 12/26/2021 at 1:23 ? ? Approved by: Manish Gamez M.D. on 12/26/2021 at 1:26?? MDM Narrative Medical decision making narrative: This is a 51-year-old male who comes emergency department for sudden onset right flank pain consistent with prior history of kidney stones. Patient has hematuria normal labs, no signs of infection. Been afebrile. Patient CT shows a 4 mm UPJ stone. Patient's pain controlled after Toradol and a dose of Dilaudid. Plan for follow-up with urology if symptoms persisting, return precautions discussed. Patient feels comfortable with this plan. Discharge Plan Departure Patient Disposition: Home Clinical Impression: Kidney stone on right side Instructions: DI for Kidney Stones Activity Restrictions/Additional Instructions: Follow-up with urology for recheck. Call for an appointment if your symptoms are persisting for more than several days. Take Flomax once daily. You may take ibuprofen up to 600 mg every 6 hours and/or Tylenol up to a 1000 mg every 6 hours. If in adequate you may take 1-2 tablets of oxycodone free 4-6 hours as needed for pain. This medication can make you sleepy do not drive, perform hazardous activities or make any major decisions while taking it. This medication will make you constipated please take a stool softener once to twice daily until stools are soft and regular. Prescription sent to [facility] in [place]. Please return for fevers, rapidly worsening or uncontrolled pain, persistent vomiting, passing out, black or bloody stools or other new or concerning symptoms. Prescriptions: New oxycodone 5 mg tablet 5 mg PO QID PRN (Reason: pain) Qty: 14 0RF tamsulosin [Flomax] 0.4 mg capsule 0.4 mg PO DAILY Qty: 7 0RF Referrals: Sukumar Tripp MD [Physician] - Stand Alone Forms: Work Release Note Visit Report Forms: Patient Portal/API
[2021-12-26 01:07] VITALS: PULSE 72; O2SAT 97
[2021-12-26 01:08] VITALS: BP 147/92; PULSE 68; O2SAT 96
[2021-12-26] MEDS: HYDROMORPHONE 0.5 MG INJ IV (01:10)
[2021-12-26 01:30] VITALS: PULSE 72; O2SAT 94
[2021-12-26 02:00] VITALS: PULSE 66; O2SAT 96
[2021-12-26] MEDS: TAMSULOSIN 0.4 MG CAPSULE PO (02:02)
[2021-12-26] MEDS: OXYCODONE/APAP 5/325 PREPACK 1 BOTTLE MISC (02:13)
[2021-12-26 02:19] VITALS: BP 157/111; PULSE 69; O2SAT 96
== END 2021-12-26 02:25 | disposition home or self-care (01) ==
PROVIDERS: Emergency Provider Emergency Medicine
DX: N20.0 Calculus of kidney (principal); Z87.442 Personal history of urinary calculi
CPT/HCPCS: 36415; 74176; 80053; 81003; 81015; 83690; 85025; 87086; 96374; 96375; 99284; J1170; J1885; J2405

== ENCOUNTER → 2023-11-29 15:50 | Outpatient (CLI) | payer BC, SELFPAY ==
--- NOTE | 2023-11-29 15:51 | DI.US.S_ITS ---
PROCEDURE: US SCROTUM INDICATIONS: Rt testic mass TECHNIQUE: Real-time scanning was performed of the scrotum and testicles, with image documentation. Color and pulse Doppler interrogation was performed of both testicles. COMPARISON: None. FINDINGS: Right: Testicle is normal in size at 3.3 x 2.2 x 3.1 cm, and homogenous in echotexture. Epididymis is normal in overall size and morphology. 3.8 x 1.6 x 3.1 cm cystic structure is noted within right epididymis with internal low level echo. No hydrocele or varicoceles. Overlying scrotal skin is normal in thickness. Left: Testicle is normal in size at 4.2 x 1.8 x 2.9 cm, and homogeneous in echotexture. 0.2 cm cyst is noted in left testes. Epididymis is normal in overall size and morphology. Small left-sided hydrocele is seen. No varicoceles. Overlying scrotal skin is normal in thickness. Doppler: Color and pulse Doppler demonstrate normal and symmetric arterial flow in both testicles. IMPRESSION: 1. Normal appearing bilateral testes. Tiny cyst in left testes as above. No evidence of testicular torsion. 2. 3.8 x 1.6 x 3.1 cm cystic structure within right epididymis which may represent a spermatocele. No internal vascularity is seen. 3. Small amount of left-sided hydrocele. Dictated by: Macario Malone M.D. on 11/29/2023 at 20:00 Approved by: Macario Malone M.D. on 11/29/2023 at 20:08
== END ==
PROVIDERS: PCP Family Medicine; Referring Provider Family Medicine; Visit Provider Family Medicine
DX: N43.3 Hydrocele, unspecified (principal); N50.3 Cyst of epididymis; N50.89 Other specified disorders of the male genital organs
CPT/HCPCS: 76870